=== PATIENT | female | born 1975 | race Caucasian/White ===

== ENCOUNTER 2021-06-26 13:16 | Emergency (ER) | payer OTHER ==
[~2021-06-26] VITALS: Ht 152.4 cm; Wt 49.9 kg
--- NOTE | 2021-06-26 13:28 | NUR ---
TO ER BED 1, C/O WEAKNESS S/P COVID VACCINE AT [facility] AT 9AM TODAY
[2021-06-26] MEDS ORDERED: IBUPROFEN 400 MG TABLET ONE (14:13)
[2021-06-26] MEDS ORDERED: ONDANSETRON 4 MG TAB.RAPDIS ONE (14:13)
[2021-06-26] MEDS ORDERED: AMOX-430 PO (14:13)
[2021-06-26] MEDS: IBUPROFEN 400 MG TABLET PO ONE (14:16)
[2021-06-26] MEDS: ONDANSETRON 4 MG TAB.RAPDIS SL ONE (14:16)
--- NOTE | 2021-06-26 14:35 | NUR ---
XRAY AT BEDSIDE
[2021-06-26 14:40] LABS: BASOPHILS # (AUTO) 0.1 K/uL (0.0-0.2); EOSINOPHILS % (AUTO) 1.2 % (0.0-6.0); HEMATOCRIT 29 % (33-45); HEMOGLOBIN 9.5 g/dL (11.5-14.8); LYMPHOCYTES # (AUTO) 1.7 K/uL (0.8-4.8); LYMPHOCYTES % (AUTO) 35.2 % (20.0-44.0); MEAN CORPUSCULAR HGB CONC 32 g/dl (31.0-36.0); MEAN CORPUSCULAR VOLUME 87 fL (82-100); MONOCYTES # (AUTO) 0.3 K/uL (0.1-1.30); MONOCYTES % (AUTO) 6.1 % (2.0-12.0); NEUTROPHILS # (AUTO) 2.8 K/uL (1.8-8.9); NEUTROPHILS % (AUTO) 56.5 % (43.0-81.0); PLATELET COUNT (AUTO) 256 K/uL (150-450); RED BLOOD CELL COUNT(AUTO) 3.39 MIL/uL (4.0-5.2)
[2021-06-26 15:03] LABS: CALCIUM, SERUM 7.7 mg/dL (8.5-10.1); CARBON DIOXIDE 27 mmol/L (21-32); CHLORIDE 107 mmol/L (98-107); CREATININE 0.6 mg/dL (0.6-1.3); GLUCOSE 99 mg/dL (74-106); POTASSIUM 3.3 mmol/L (3.5-5.1); SODIUM SERUM 144 mmol/L (136-145); UREA NITROGEN, BLOOD 3 mg/dL (7-18)
[2021-06-26 15:11] LABS: ALANINE AMINOTRANSFERASE 50 U/L (12-78); ALBUMIN 3.2 g/dL (3.4-5.0); ALKALINE PHOSPHATASE 81 U/L (46-116); ASPARTATE AMINOTRANSFERASE 88 U/L (15-37); BILIRUBIN,TOTAL 0.2 mg/dL (0.2-1.0); TOTAL PROTEIN, SERUM 6.7 g/dL (6.4-8.2)
[2021-06-26 15:56] LABS: BILIRUBIN,URINE NEGATIVE (NEGATIVE); COLOR,URINE YELLOW (YELLOW); LEUKOCYTE ESTERASE ,URINE NEGATIVE (NEGATIVE); NITRITE, URINE NEGATIVE (NEGATIVE); PROTEIN,URINE NEGATIVE (NEGATIVE); UGLUCOSE NEGATIVE (NEGATIVE); UROBILINOGEN,URINE 0.2 EU/dL (0.2)
[2021-06-26 16:17] LABS: ALCOHOL, BLOOD 410 mg/dL (0-0)
[2021-06-26 16:45] LABS: BACTERIA,URINE Few /HPF (None Seen); SQUAMOUS EPITHELIAL CELL,UR Few /HPF (None Seen); WBC,URINE 0-2 /HPF (0-3)
--- NOTE | 2021-06-26 19:15 | NUR ---
recieved pt from ALEX Ellis
--- NOTE | 2021-06-26 20:31 | NUR ---
Patient discharged to home in stable condition. Written and verbal after care instructions given. Patient verbalizes understanding of instruction.
[2021-06-26 20:32] VITALS: BP 110/80
--- NOTE | 2021-06-26 20:37 | NUR ---
FEMALE EMT PRESENT FOR RECTAL EXAM W/ DR VO
== END 2021-06-26 20:32 | disposition home or self-care (01) ==
LOC: EDBD → ER 13:22
DX: R53.1 Weakness (principal); F10.129 Alcohol abuse with intoxication, unspecified; D64.9 Anemia, unspecified; K08.89 Other specified disorders of teeth and supporting structures; Z91.018 Allergy to other foods; Y90.8 Blood alcohol level of 240 mg/100 ml or more
CPT/HCPCS: 36415; 71045; 80053; 80320; 81001; 83690; 84484; 84702; 85025; 93005; 99285; Q0162; G0480

== ENCOUNTER 2021-06-27 09:10 | Emergency (ER) | payer OTHER ==
[~2021-06-27] VITALS: Ht 152.4 cm; Wt 52.2 kg
[~2021-06-27 09:10] MED LIST: AMOX-430 PO
--- NOTE | 2021-06-27 09:16 | NUR ---
MARIBETH LAUREN RA STAFF CALLED 911 TO REMOVE PT FROM PROPERTY ETOH NOTED ON BREATH. THE PATIENT IS ALERT AND ORIENTED TO SELF. ADMITS DRINKING ALCOHOL. DENIES PAIN. IN ROOM AIR AND DENIES SOB. RESPIRATION REGULAR AND UNLABORED. DENIES SI/HI. WILL CONTINUE TO MONITOR THE PATIENT.
--- NOTE | 2021-06-27 12:46 | NUR ---
SS Consult: SS Consult requested for Alcohol abuse. The pt. is a 40-year old female who is in ED after being BIBRA because she was found at "[employer] store intoxicated". The pt. appears unkempt is A&O X4 and makes poor eye contact. The pt.'s mood is WNL & speech is slightly slurred. Pt. remains calm & cooperative. LILIAN explored pt.'s living situation. Pt. states she rents a room and has 2 other roommates in an apartment located on [address]. LILIAN explored pt.'s mental health Hx. Pt. states she has been diagnosed with depression in the past and has been prescribed with Wellbutrin & Trazedone but "choose not to take medication". LILIAN explored pt.'s drug & ETOH use. Patient denies Hx. of alcohol abuse. Pt. states she has been drinking heavily as of late because she had 6 teeth removed and got her COVID Booster shot recently and has been having pain. Per pt. she is self medicating with alcohol as she does not like taking pain medication. Pt. states alcohol is not a problem for her. LILIAN discussed that she has been in the ER for alcohol intoxication the past 2 days and that this is concerning. Pt. states she just needs to go home and sleep it off. SW offered detox / rehab Tx and pt. refused. Pt. states she is ambulatory. LILIAN explored pt.'s support system. Pt. states she has no support system. Pt. stated she receives Food stamps. Pt. denies SI/HI and denies hallucinations. D/C PLAN: Patient states she will return to her apartment located on [facility]. Pt. states she rents a room and has 2 other roommates. SW provided addiction resources and pt. refused. SW offered detox / rehab Tx and pt. refused. LILIAN discussed D/C plan with
--- NOTE | 2021-06-27 13:42 | NUR ---
The patient is alert and oriented x4. Denies pain. In room air and denies SOB. Respiration regular and unlabored. Denies SI/HI. States that she is not homless. The patient has stable gait. Patient discharged to home in stable condition. Written and verbal after care instructions given. Patient verbalizes understanding of instruction.
[2021-06-27 13:43] VITALS: BP 116/75
== END 2021-06-27 13:43 | disposition home or self-care (01) ==
LOC: ER 09:26
DX: F10.129 Alcohol abuse with intoxication, unspecified (principal); Y90.9 Presence of alcohol in blood, level not specified; Z91.018 Allergy to other foods

== ENCOUNTER 2021-06-27 17:39 | Emergency (ER) | payer OTHER ==
[~2021-06-27] VITALS: Ht 152.4 cm; Wt 50.3 kg
--- NOTE | 2021-06-27 17:50 | NUR ---
C/O FEELING SICK. PATIENT A/OX4, BREATHING EVEN AND UNLABORED, NO SOB NOTED. -N/V/D. NO DISTRESS NOTED. ASSISTED TO ER BED 7.
--- NOTE | 2021-06-27 18:30 | NUR ---
PATIENT A/OX4, AMBULATORY WITH STEADY GAIT. DENIES ANY COMPLAINT AT THIS TIME. PATIENT KEPT INSISTING SHE WANTS TO GO HOME.
--- NOTE | 2021-06-27 18:49 | NUR ---
Patient a/ox4, ambulatory with steady gait. No distress noted. Patient discharged to home in stable condition. Written and verbal after care instructions given. Patient verbalizes understanding of instruction.
--- NOTE | 2021-06-27 18:50 | NUR ---
refused to have VS taken, explained risks and benefits.
== END 2021-06-27 18:50 | disposition home or self-care (01) ==
LOC: ER 18:15
DX: F10.129 Alcohol abuse with intoxication, unspecified (principal); Y90.9 Presence of alcohol in blood, level not specified; Z91.018 Allergy to other foods; Z60.2 Problems related to living alone

== ENCOUNTER 2021-06-29 14:43 | Emergency (ER) | payer OTHER ==
[~2021-06-29] VITALS: Ht 152.4 cm; Wt 50.3 kg
--- NOTE | 2021-06-29 14:55 | NUR ---
SEEN AND EXAMINED BY .
[2021-06-29 15:08] VITALS: BP 92/60
--- NOTE | 2021-06-29 18:40 | NUR ---
PT ABLE TO AMBULATE WITHOUT ASSISTANCE. MD RUDOLPH.
--- NOTE | 2021-06-29 18:42 | NUR ---
Patient given written and verbal discharge instructions. Patient verbalizes understanding of instructions. Patient is ambulatory with steady gait. Refuses offer of assisted placement. Patient given list of available shelters in surrounding area.
== END 2021-06-29 18:44 | disposition home or self-care (01) ==
LOC: ER 14:49
DX: F10.129 Alcohol abuse with intoxication, unspecified (principal); Z91.018 Allergy to other foods; Z60.2 Problems related to living alone; Y90.9 Presence of alcohol in blood, level not specified